=== PATIENT | female | born 1940 | race Caucasian/White ===

== ENCOUNTER 2017-10-20 11:59 | Inpatient (IN) | payer OTHER ==
[~2017-10-20] VITALS: Ht 167.6 cm; Wt 86.2 kg
--- NOTE | 2017-10-20 12:00 | NUR ---
PT CAME IN WITH C/O DIZZINESS YESTERDAY AND THIS MORNING. AT BS FOR EVAL. EKG AT BS. PT AAOX4. SAFETY AND COMFORT MEASURES PROVIDED. WILL MONITOR.
--- NOTE | 2017-10-20 12:20 | NUR ---
IV ACCESS STARTED. BLOOD DRAWN FOR LABS.
--- NOTE | 2017-10-20 12:25 | NUR ---
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
[2017-10-20 12:31] LABS: BASOPHILS # (AUTO) 0.1 /CMM (0.0-0.2); BASOPHILS % (AUTO) 0.9 % (0.0-2.0); EOSINOPHILS % (AUTO) 5.3 % (0.0-6.0); HEMATOCRIT 41 % (33-45); HEMOGLOBIN 13.5 g/dL (11.5-14.8); LYMPHOCYTES # (AUTO) 0.5 /CMM (0.8-4.8); LYMPHOCYTES % (AUTO) 6.6 % (20.0-44.0); MEAN CORPUSCULAR HEMOGLOBIN 30 PG (26.0-33.0); MEAN CORPUSCULAR HGB CONC 33 g/dl (31.0-36.0); MEAN CORPUSCULAR VOLUME 90 fL (82-100); MONOCYTES # (AUTO) 0.5 /CMM (0.1-1.30); MONOCYTES % (AUTO) 6.3 % (2.0-12.0); NEUTROPHILS # (AUTO) 6.1 /CMM (1.8-8.9); NEUTROPHILS % (AUTO) 80.9 % (43.0-81.0); PLATELET COUNT (AUTO) 266 /CMM (150-450); RED BLOOD CELL COUNT(AUTO) 4.51 MIL/uL (4.0-5.2); WHITE BLOOD COUNT (AUTO) 7.6 K/uL (4.3-11.0)
[2017-10-20 12:38] LABS: CARBON DIOXIDE 29 mmol/L (21-32); CHLORIDE 106 mmol/L (98-107); CREATININE 1.2 mg/dL (0.6-1.3); GLUCOSE 111 mg/dL (74-106); POTASSIUM 4.2 mmol/L (3.5-5.1); SODIUM SERUM 138 mmol/L (136-145); UREA NITROGEN, BLOOD 22 mg/dL (7-18)
[2017-10-20 12:41] LABS: INR 0.93 (0.85-1.15)
[2017-10-20 12:45] LABS: TROPONIN I < 0.017 ng/mL (0.00-0.056)
[2017-10-20 12:49] LABS: ALANINE AMINOTRANSFERASE 37 U/L (12-78); ALBUMIN 3.3 g/dL (3.4-5.0); ALKALINE PHOSPHATASE 226 U/L (46-116); ASPARTATE AMINOTRANSFERASE 34 U/L (15-37); BILIRUBIN,DIRECT 0.1 mg/dL (0.0-0.2); BILIRUBIN,TOTAL 0.5 mg/dL (0.2-1.0); TOTAL PROTEIN, SERUM 6.3 g/dL (6.4-8.2)
[2017-10-20 13:04] LABS: APPEARANCE,URINE Clear (CLEAR); BILIRUBIN,URINE Negative (NEGATIVE); BLOOD, URINE Negative Ery/uL (NEGATIVE); COLOR,URINE Yellow (YELLOW); KETONES,URINE Negative (NEGATIVE); LEUKOCYTE ESTERASE ,URINE Trace (NEGATIVE); NITRITE, URINE Positive (NEGATIVE); PROTEIN,URINE Negative (NEGATIVE); UGLUCOSE Negative (NEGATIVE); UROBILINOGEN,URINE 0.2 EU/dL (0.2)
--- NOTE | 2017-10-20 13:54 | NUR ---
CALLED ADMITTING TO CONTACT [facility] CUT LACE MACHINE OPERATOR
[2017-10-20] MEDS ORDERED: HYDR200T4 PO (13:58)
[2017-10-20] MEDS ORDERED: CYCL30DR EACHEYE (13:58)
[2017-10-20 14:12] LABS: RBC,URINE 0-2 /HPF (0-2)
[2017-10-20 14:13] LABS: BACTERIA,URINE Moderate /HPF (None Seen); SQUAMOUS EPITHELIAL CELL,UR Few /HPF (None Seen)
--- NOTE | 2017-10-20 14:33 | NUR ---
CALLED NURSE SUP FOR TELE BED
--- NOTE | 2017-10-20 15:21 | NUR ---
REPORT GIVEN TO REYMUNDO GILL FOR TELE 115-1
--- NOTE | 2017-10-20 15:28 | NUR ---
DR. ELKINS AT FOR EVAL.
[2017-10-20 16:00] VITALS: BP 135/70
[2017-10-20] MEDS ORDERED: MECLIZINE HCL 12.5 MG TABLET PO PRN (16:00)
[2017-10-20] MEDS ORDERED: ZOLPIDEM TARTRATE 5 MG TABLET PO PRN (16:00)
[2017-10-20] MEDS ORDERED: ACETAMINOPHEN ES 500 MG TABLET PO PRN (16:00)
[2017-10-20] MEDS ORDERED: Medication Not On Formulary EA (Cyclosporine (Restasis) 1 DROP) EACHEYE PRN (16:00)
--- NOTE | 2017-10-20 16:00 | NUR ---
RN NOTE PT ARRIVED FROM ER TO FLOOR ON GURNEY, AOX4, AMBULATORY. ON TELEMONITOR SR 70, DENIES PAIN, SOB, VS STABLE, IV IN PLACE, INTACT, SKIN INTACT, SAFETY MEASURES IN PLACE, CALL LIGHT WITHIN REACH, WILL CARRY OUT ADMITTING ORDERS.
[2017-10-20] MEDS: HYDROXYCHLOROQUINE 200 MG TABLET PO SCH (17:57)
[2017-10-20 20:00] VITALS: BP 99/64
[2017-10-21] VITALS: BP 115/49
[2017-10-21 00:25] VITALS: BP 115/49
[2017-10-21 04:00] VITALS: BP 118/55
[2017-10-21 04:22] VITALS: BP 118/55
[2017-10-21 07:10] LABS: THYROID STIMULATING HORMONE 4.514 uIU/mL (0.358-3.74)
--- NOTE | 2017-10-21 07:30 | NUR ---
REPAIRER SASH AND DOOR INITIAL NOTES RECEIVED PATIENT IN BED, AOX4, NO SIGNS OF DISTRESS, ON ROOM AIR, ON TELE MONITORING, SR 60S HR, IV RFA 18G, CLEAN AND PATENT, SL, AMBULATORY, BED IN LOW AND LOCKED POSITION, CALL LIGHT WITHIN REACH, WILL CONTINUE TO MONITOR.
[2017-10-21 08:00] VITALS: BP 122/50
[2017-10-21] MEDS ORDERED: MECL12.582 PO (08:19)
[2017-10-21] MEDS: HYDROXYCHLOROQUINE 200 MG TABLET PO SCH (08:50)
--- NOTE | 2017-10-21 11:22 | NUR ---
COSTUME DESIGN TEACHER NOTES PATIENT DISCHARGE ORDERS GIVEN, ALL DISCHARGE PAPERWORK DONE, BELONGINGS LIST SIGNED, NO SKIN ISSUES, IV DISCONTINUED, TIP INTACT, DISCHARGE TEACHING DONE, ALL QUESTIONS ANSWERED, TEACHING DONE ABOUT NEW MEDICATION, MECLIZINE FOR VERTIGO, ORDERED BY DR ELKINS, INDICATION AND SIDE EFFECTS EXPLAINED, PATIENT AWAITING PICKUP BY HER DAUGHTER.
== END 2017-10-21 11:30 | disposition home or self-care (01) | DRG 149 ==
LOC: ER 12:11 → TELE1 14:47
PROVIDERS: ADMIT Internal Medicine; ATTEND Internal Medicine
DX: H81.10 Benign paroxysmal vertigo, unspecified ear (principal); C85.90 Non-Hodgkin lymphoma, unspecified, unspecified site; Z88.5 Allergy status to narcotic agent; M35.00 Sjogren syndrome, unspecified; Z92.3 Personal history of irradiation; Z88.1 Allergy status to other antibiotic agents
CPT/HCPCS: 36415; 71045-TC; 80048-TC; 80061-TC; 80076-TC; 81000-TC; 83605-TC; 84443-TC; 84484-TC; 85025-TC; 85730-TC; 87081-TC; 87086-TC; 87186-TC; 93307-TC; 93880-TC; 93970-TC; A4606; J8597; Z7610

== ENCOUNTER 2022-10-06 11:49 | Emergency (ER) | payer OTHER ==
[~2022-10-06] VITALS: Ht 167.6 cm; Wt 77.1 kg
[~2022-10-06 11:49] MED LIST: CYCL30DR EACHEYE; HYDR200T4 PO; MECL-182 PO
[2022-10-06] MEDS ORDERED: LIDOCAINE 2% 20 ML MDV ONE (12:20)
[2022-10-06] MEDS ORDERED: LIDOCAINE 1% INJ 50 ML MDV IJ ONE ×2 (12:25→12:30)
[2022-10-06] MEDS ORDERED: TDAP [DIPH/PERTUSSIS/TET] 0.5 ML VIAL IM ONE ×2 (12:29→12:30)
[2022-10-06 16:03] VITALS: BP 125/75; TEMP 98; O2SAT 98
== END 2022-10-06 15:52 | disposition home or self-care (01) ==
LOC: ER 11:49
DX: S61.412A Laceration without foreign body of left hand, initial encounter (principal); S50.811A Abrasion of right forearm, initial encounter; Z88.5 Allergy status to narcotic agent; Z88.8 Allergy status to other drugs, medicaments and biological substances; W01.0XXA Fall on same level from slipping, tripping and stumbling without subsequent striking against object, initial encounter; Y93.89 Activity, other specified; Y92.89 Other specified places as the place of occurrence of the external cause; Y99.8 Other external cause status
CPT/HCPCS: 99283; 12002; 90471; 90715; 73130; J3490